=== PATIENT | female | born 1945 | race Caucasian/White ===

== ENCOUNTER 2024-09-26 14:17 | Emergency (ER) | payer MEDICARE, SELFPAY ==
[2024-09-26] VITALS (22 sets, daily range): BP systolic 83–128; BP diastolic 49–82; BMI 19.0
[2024-09-26 14:53] LABS: % Basophils 0.2 % (0-2); % Immature Granulocytes 0.9 % (0-0.5); % Lymphocytes 3.7 % (20.5-51.1); % Monocytes 8.5 % (1.7-9.3); % Neutrophils 86.7 % (42.2-75.2); Absolute Immature Granulocytes 0.1 10^3/uL (0-0.05); Absolute Lymphocytes 0.5 10^3/uL (1.2-3.4); Absolute Monocytes 1.2 10^3/uL (0.1-0.6); Absolute Neutrophils 12.1 10^3/uL (1.4-6.5); Hematocrit 36.7 % (37.0-47.0); Hemoglobin 12.8 g/dL (12.0-16.0); Mean Corp Hgb Conc. 34.9 g/dL (33.0-37.0); Mean Corpuscular Hgb 29.9 pg (27.0-31.0); Mean Corpuscular Volume 85.7 fL (81.0-99.0); Mean Platelet Volume 9.7 fL (7.4-10.4); Nucleated Red Blood Cells % 0 %; Platelet Count 158 10^3/uL (130-400); Red Blood Cell Count 4.28 10^6/uL (4.20-5.40); Red Cell Dist. Width 13.1 % (11.5-14.5)
[2024-09-26 15:11] LABS: ALT (SGPT) 18 U/L (0-35); AST (SGOT) 24 U/L (14-36); Albumin 3.4 g/dl (3.5-5.0); Alkaline Phosphatase 49 U/L (38-126); Blood Urea Nitrogen 31 mg/dl (7-17); Calcium 8.8 mg/dl (8.4-10.2); Carbon Dioxide 22 mmol/L (22-30); Chloride 98 mmol/L (98-107); Estimated Creatinine Clearance 36 ml/min; Glucose 120 mg/dl (70-99); Potassium 3.9 mmol/L (3.5-5.1); Sodium 130 mmol/L (135-145); Total Bilirubin 1.2 mg/dl (0.2-1.3); Total Protein 5.9 g/dl (6.3-8.2); eGFR 51.43
[2024-09-26] MEDS: CARDIZEM 10 MG IV (15:59)
--- NOTE | 2024-09-26 15:59 | ED.GENMED ---
History of Present Illness
General
Chief Complaint: Heart Rate Problem
Source: patient
Exam Limitations: none
Time Seen by Provider: 09/26/24 15:11
Nursing documentation reviewed up to this point in time: agreed with
History of Present Illness
History of Present Illness:
The patient is a pleasant 79-year-old female with a past medical history of dementia who arrives from [facility] for an increased heart rate. Reportedly, according to her family, her increased heart rate was first noticed yesterday.
Patient arrives without any complaints. She denies shortness of breath, palpitations, dizziness and chest pain. She reports that yesterday she noticed left lower back pain but now this is gone completely. She denies nausea, vomiting, or any
urinary symptoms. Patient reports she feels well other than feeling a little anxious. Patient has known history of atrial fibrillation and family reports that she is reliably given Eliquis twice a day. Patient has a history of cardioversion this
past March according to her family.
Past History
Past History
ED Past Medical History: Arrthythmia and Other (dementia)
ED Past Surgical History:
Social History
Tobacco: Other
Alcohol: None
Drug: None
Personal: Other
Living: fpc
Employment: Not employed
Family History
Family History: Other
Review of Systems
Review of Systems
Allergies reviewed?: Yes
Other source history: family
All Other Systems: ROS reviewed and negative except as documented in HPI and ROS
Constitutional: Reports no symptoms
EENT: Reports no symptoms
Respiratory: Reports no symptoms
Cardiac: Reports no symptoms
ABD/GI: Reports no symptoms
: Reports no symptoms
Musculoskeletal: Reports back pain (L back pain now gone)
Skin: Reports no symptoms
Neurological: Reports no symptoms
Endocrine: Reports no symptoms
Hematologic/Lymphatic: Reports no symptoms
Psychiatric: Reports no symptoms
Phy Exam
Physical Exam
Physical Exam:
Physical Exam
General: no apparent distress, not acutely ill
Neck: supple. no meningeal signs. normal psoterior pharynx
Heart: Irregular, abnormal
Lungs: no acute respiratory distress. clear bilaterally
Abdomen: normal bowel sounds. not tender. no CVAT
Neuro: alert and oriented. no focal neurological deficits
Skin: no rash
Psychiatric: well kept. interactive and cooperative
Extremities: no edema. no calf tenderness. negative homans. good distal pulses
Course
Orders/Labs/Results
Orders:
Orders
09/26/24 14:23
Electrocardiogram (*1) Urgent
Reason for Study: Chest Pain
Cardiac Monitoring- Treatment ONCE
EKG- Treatment ONCE
09/26/24 14:45
Complete Blood Count/With Diff Urgent
Comprehensive Metabolic Panel Urgent
09/26/24 15:56
Diltiazem 125 mg/125 ml Nss [Cardizem] 125 mg in 125 ml .ROUTE .STK-MED
Diltiazem HCl [Cardizem] 25 mg .ROUTE .STK-MED ONE
09/26/24 15:57
Diltiazem 125 mg/125 ml Nss [Cardizem] 125 mg in 125 ml IV NOW
Initial dose in mg/hr, then titrate:: 5
Titrate to keep:: Heart rate 80-100 bpm
Titrate by mg/hr:: 5 mg/hr
Frequency of titrations (minutes):: 15
Maximum dose in mg/hr:: 15
Diltiazem HCl [Cardizem] 10 mg IV NOW STA
09/26/24 16:10
0.9% Sodium Chloride 500 ml [Nss] 500 ml IV BOLUS
09/26/24 16:11
CR Chest Portable - 1 View Urgent
Comment:
Reason For Exam: cough
Reason Study Needs to be Portable: Patient Unstable
09/26/24 16:37
Urinalysis Reflex To Culture Urgent
Date Specimen was Collected: 09/26/24
Time Specimen was Collected: 16:35
Urine Microscopic Reflex Cult Urgent
Urine Culture Urgent
MAGDI Source: U
Specimen Description:
Date Specimen was Collected: 09/26/24
Time Specimen was Collected: 16:35
09/26/24 17:31
Propofol [Diprivan] 20 ml .ROUTE .STK-MED
09/26/24 17:45
EKG [Electrocardiogram (*1)] Urgent
Reason for Study: Atrial Fibrillation
EKG- Treatment ONCE
Abnormal Lab Results
09/26/24 09/26/24
14:45 16:37
WBC 14.0 H 10^3/uL
(4.8-10.8)
Hct 36.7 L %
(37.0-47.0)
Abs Immat Gran (auto) 0.1 H 10^3/uL
(0-0.05)
Absolute Neuts (auto) 12.1 H 10^3/uL
(1.4-6.5)
Absolute Lymphs (auto) 0.5 L 10^3/uL
(1.2-3.4)
Absolute Monos (auto) 1.2 H 10^3/uL
(0.1-0.6)
Immature Gran % 0.9 H %
(0-0.5)
Neutrophils % 86.7 H %
(42.2-75.2)
Lymphocytes % 3.7 L %
(20.5-51.1)
Sodium 130 L mmol/L
(135-145)
BUN 31 H mg/dl
(7-17)
Creatinine 1.1 H mg/dL
(0.6-1.0)
Glucose 120 H mg/dl
(70-99)
Total Protein 5.9 L g/dl
(6.3-8.2)
Albumin 3.4 L g/dl
(3.5-5.0)
Urine Ketones Trace A
(Negative)
Ur Occult Blood Reflex 2+ A
(Negative)
Urine RBC 3-6 A /HPF
(0-2)
Urine Bacteria (Reflex) Moderate A
(Negative)
09/26/24 14:45
09/26/24 14:45
Vital Signs
Initial and Last Documented VS:
Initial Vital Signs
BP
115/82
09/26/24 14:22
Last Documented Vital Signs
Temp Pulse Resp BP Pulse Ox
97.7 F 90 18 110/64 97
09/26/24 17:43 09/26/24 18:45 09/26/24 18:45 09/26/24 18:45 09/26/24 18:45
Procedures
Moderate Sedation
ASA Risk Score: Class II
Chart and allergies reviewed: Yes
Consent for anesthesia obtained: Yes
Time out completed (validating right patient & procedure): Yes
Moderate Sedation Start Time(when first medication is given): 05:44
History of difficult intubation: No
Airway free of obstruction: Yes
Patient has a gag reflex: Yes
Patient is able to open mouth: Yes
Patient has no dentures: Yes
Patient has no loose teeth: Yes
Medication administered by Provider during Moderate Sedation: IV Propofol (mg)
Total dose administered: 40
Time drug administered: 17:44
Moderate Sedation Procedure End Time: 17:54
Cardioversion
Indication:: Afib
Performed by:: sandy
Synchronized?: Yes
Energy Used: 150 joules
Number of attempts: 1
Successful?: Yes
Complications: none
MDM/Problems Addressed
Differential Diagnosis Includes:
Atrial fibrillation with RVR, sinus tachycardia, CHF
MDM/Problems Addressed:
Patient presents with acute on chronic rapid heart rate
Chronic conditions affecting care: Arrhythmia
Acute Exacerbation and/or Progression of Chronic Illness:
Patient has acute exacerbation of A-fib with RVR
Acute Exacerbation and/or Progression of Chronic Illness: Arrhythmia
*Radiology
Radiology exam reviewed: preliminary read by ED provider (Chest x-ray by me. Cardiomegaly) and radiology read reviewed
*Pulse Oximetry
Patient hypoxic: no
*EKG
Interpreted by ED Provider?: Yes
Interpretation: abnormal
Comparison EKG: no comparison EKG present
Rate: normal
Rhythm: a-fib
[place]: left axis deviation
Interval: normal interval
QRS Pattern: normal QRS
Ischemia: non-specific ST changes
*Or[employer] Interpretation
Rate: tachycardiac
Interpretation: abnormal
Rhythm: a-fib
*Critical Care Note
Total Time (30-74mins, 75-104mins- exclusive of procedures): Not Applicable (35 minutes critical care given to patient including discussing the procedural sedation, cardioversion, reviewing her EKGs and lab work.)
Data Reviewed
Source: patient and family (Her nephew who is at the bedside)
Update Note
Update Note:
Second EKG shows a normal sinus rhythm at a heart rate of 86. Normal axis. Nonspecific ST abnormality
ED Attending Note
-
Portions of this chart may have been created with voice recognition software.� Occasional wrong word or��sound alike� substitutions may have occurred due to the inherent limitations of voice recognition software.
Discharge Plan
Departure
Patient Disposition: Home (Routine Discharge)
Date of Disposition: 09/26/24
Time of Disposition: 18:21
Patient with high blood pressure during this ER visit?: No
Condition: Good
Covid-19: Not Applicable
Discharge Problem:
Atrial fibrillation with rapid ventricular response
Instructions: Atrial Fibrillation (DC), Cardioversion - Discharge instructions, MODERATE SEDATION ADULT
Prescriptions:
No Action
quetiapine 25 mg Tablet
25 mg PO HS
donepezil 5 mg Tablet
5 mg PO DAILY
metoprolol succinate 50 mg Tablet Extended Release 24 Hr
50 mg PO DAILY
Rx Instructions:
Hold for HR<60
lisinopril 20 mg Tablet
20 mg PO DAILY
spironolactone 25 mg Tablet
25 mg PO DAILY
simvastatin 20 mg Tablet
20 mg PO HS
cholecalciferol (vitamin D3) [Vitamin D3] 25 mcg (1,000 unit) Tablet
1,500 unit PO DAILY
Eliquis 5 mg Tablet
5 mg PO BID
magnesium oxide 400 mg magnesium Tablet
400 mg PO DAILY
Referrals:
Larry Mata MD [Family Provider] -
Activity Restrictions/Additional Instructions:
Please do not give Bernice any blood pressure medication tonight such as lisinopril and metoprolol. Her blood pressure medications can be restarted as usual tomorrow morning. Please follow-up with your sod farmer within 1 week
Interventions
Interventions:
*Risk Screen - Suicide Last Done: 09/26/24 14:35
*General Assessment Last Done: 09/26/24 14:35
*Neglect/Abuse Screening Last Done: 09/26/24 14:35
ED- Fall Risk Assessment Last Done: 09/26/24 14:35
*ED COVID-19 Vaccine History Last Done: 09/26/24 14:35
*Nursing Disposition Last Done: 09/26/24 18:50
ED- Cardiac Assessment Last Done: 09/26/24 14:42
ED- Pulmonary Assessment Last Done: 09/26/24 14:42
Discharge Date and Time
Discharge Date/Time: 09/26/24 18:53
Print Language: KOREAN
[2024-09-26] MEDS: CARDIZEM 125 IV (16:07)
[2024-09-26] MEDS: NSS 500 IV (16:28)
[2024-09-26 16:55] LABS: Urine Albumin Trace (Neg - Trace); Urine Bilirubin Negative (Negative); Urine Character Clear (Clear); Urine Color Yellow; Urine Glucose Negative (Negative); Urine Ketone Trace (Negative); Urine Leukocyte Negative (Negative); Urine Nitrite Negative (Negative); Urine Occult Blood 2+ (Negative); Urine Urobilinogen Negative (Neg - 1+)
[2024-09-26 17:06] LABS: Urine Squamous Cell 0-2 /LPF (Few)
[2024-09-26 17:07] LABS: Urine Mucus Few
[2024-09-26 17:08] LABS: Urine Bacteria Moderate (Negative); Urine White Cell 0-2 /HPF (0-5)
== END 2024-09-26 18:53 | disposition home or self-care (01) ==
LOC: EMR 14:17
PROVIDERS: Student in an Organized Health Care Education/Training Program; EMERGENCY PHYSICIAN Emergency Medicine; FAMILY PHYSICIAN Internal Medicine
DX: I48.91 Unspecified atrial fibrillation (principal); F03.90 Unspecified dementia, unspecified severity, without behavioral disturbance, psychotic disturbance, mood disturbance, and anxiety
CPT/HCPCS: 92960; 99152; 96374; 96361; 99291; 71045; 80053; 81003; 81015; 85025; 87086; 93005

== ENCOUNTER 2024-09-30 16:25 | Inpatient (IN) | payer OTHER, SELFPAY ==
[2024-09-30] VITALS (30 sets, daily range): BP systolic 72–139; BP diastolic 53–95; BMI 18.7
[2024-09-30 13:23] LABS: Hematocrit 40.6 % (37.0-47.0); Hemoglobin 13.6 g/dL (12.0-16.0); Mean Corp Hgb Conc. 33.5 g/dL (33.0-37.0); Mean Corpuscular Hgb 29.7 pg (27.0-31.0); Mean Corpuscular Volume 88.6 fL (81.0-99.0); Platelet Count 369 10^3/uL (130-400); Red Blood Cell Count 4.58 10^6/uL (4.20-5.40); Red Cell Dist. Width 13.6 % (11.5-14.5); White Blood Cell Count 17.6 10^3/uL (4.8-10.8)
--- NOTE | 2024-09-30 13:35 | ED.GENMED ---
History of Present Illness
General
Chief Complaint: Heart Rate Problem
Time Seen by Provider: 09/30/24 13:24
History of Present Illness
History of Present Illness:
Patient is a 79-year-old woman with history of A-fib on Eliquis and metoprolol, hypertension presenting to the emergency department with elevated heart rate. Patient states that she was feeling well this morning when they checked her heart rate was
elevated. Per medics the facility checked and it was in the 180s. They gave her additional metoprolol which did not improve it. Shortly after they gave her p.o. diltiazem. On medics arrival patient was still in A-fib in the 160s. They did give
her fluids. Patient does state that she has had a little cough congestion runny nose however is otherwise feeling well per chart review patient was seen here a few days ago she had a cardioversion. She is on Eliquis has not missed any doses. She
denies any chest pain or difficulty breathing. No nausea vomiting.
Past History
Past History
ED Past Medical History: Arrthythmia and Other (dementia)
ED Past Surgical History:
Social History
Tobacco: Other
Alcohol: None
Drug: None
Personal: Other
Living: alf
Employment: Not employed
Family History
Family History: Other
Phy Exam
Physical Exam
Physical Exam:
GENERAL: in no acute distress
HEENT: normocephalic, extraocular movements intact, dry oral mucosa
NECK: normal inspection
RESPIRATORY: no respiratory distress, clear to auscultation bilaterally
CARDIOVASCULAR: Irregularly irregular,
ABDOMEN/: soft, non-distended, non-tender to palpation, no rebound or guarding
EXTREMITIES: non-tender, no edema/swelling
NEUROLOGIC: awake and alert, moves all extremities
SKIN: warm
Course
Orders/Labs/Results
Orders:
Orders
09/30/24 13:02
Electrocardiogram (*1) Urgent
Reason for Study: Chest Pain
Cardiac Monitoring- Treatment ONCE
EKG- Treatment ONCE
IV Insert/Care/Rem.- Treatment PRN
O2 Therapy [RESP] Urgent
Titrate/Wean O2 to maintain O2 sat greater than (%): 90
Special Instructions: Maintain sats >/=90%
Pulse Ox/spot Check [RESP] Urgent
Quantity: 1
Special Instructions: ON ROOM AIR
09/30/24 13:06
Complete Blood Count/With Diff Urgent
Comprehensive Metabolic Panel Urgent
09/30/24 13:25
CR Chest Portable - 1 View Urgent
Comment:
Reason For Exam: cough
Reason Study Needs to be Portable: Patient Unstable
09/30/24 13:34
0.9% Sodium Chloride 500 ml [Nss] 500 ml IV BOLUS
Calcium Gluconate 1,000 mg IV NOW STA
09/30/24 13:44
COVID-19 Antigen Urgent
Source: Nasal Swab
Influenza A+B Rapid Molecular Urgent
MAGDI Source: Nasal Swab
Specimen Description:
09/30/24 13:47
Add On- LAB Urgent
Tests Added?: magnesium
Abnormal Lab Results
09/30/24
13:06
WBC 17.6 H 10^3/uL
(4.8-10.8)
Abs Immat Gran (auto) 1.5 H 10^3/uL
(0-0.05)
Absolute Neuts (auto) 13.1 H 10^3/uL
(1.4-6.5)
Absolute Monos (auto) 1.1 H 10^3/uL
(0.1-0.6)
Immature Gran % 8.6 H %
(0-0.5)
Lymphocytes % 10.4 L %
(20.5-51.1)
Sodium 134 L mmol/L
(135-145)
Carbon Dioxide 20 L mmol/L
(22-30)
BUN 21 H mg/dl
(7-17)
Calcium 10.3 H mg/dl
(8.4-10.2)
09/30/24 13:06
09/30/24 13:06
Vital Signs
Initial and Last Documented VS:
Initial Vital Signs
Temp
97.5 F
09/30/24 12:59
Last Documented Vital Signs
Temp Pulse Resp BP Pulse Ox
97.5 F 98 18 104/58 97
09/30/24 12:59 09/30/24 14:15 09/30/24 14:15 09/30/24 14:15 09/30/24 14:00
MDM/Problems Addressed
Differential Diagnosis Includes:
Patient is a 79-year-old woman history of A-fib on Eliquis presenting to the emergency department with elevated heart rate. On arrival here patient's heart rate is anywhere in the 160s to the 180s. Her blood pressure is normal. On exam she does
have occasional crackle to the right lower base. Could be pneumonia versus pulmonary edema. Will check checks x-ray. Will check blood work. Will give additional fluids as well as calcium in case diltiazem is started and obtain COVID and flu swab.
*Critical Care Note
Total Time (30-74mins, 75-104mins- exclusive of procedures): Not Applicable
Update Note
Update Note:
On reevaluation patient heart rate has decreased to the 1 teens 100s. Occasionally when I go in the room or she starts talking her heart rate will increase to the 160s but will go back down to the low 100s without any additional intervention. Will
hold off on starting diltiazem drip.
Her blood work does show leukocytosis. She has been having cough with URI symptoms and x-ray per my interpretation with left lower lobe opacity. Will start antibiotics. COVID and flu negative. Discussed with hospitalist who accepted patient to
their service
ED Attending Note
-
Portions of this chart may have been created with voice recognition software.� Occasional wrong word or��sound alike� substitutions may have occurred due to the inherent limitations of voice recognition software.
Discharge Plan
Departure
Patient Disposition: Admit
Date of Disposition: 09/30/24
Time of Disposition: 14:56
Presentation/result/management discussed w/ accepting MD/DO: Hospitalist
Discharge Problem:
Pneumonia, Atrial fibrillation
Prescriptions:
No Action
quetiapine 25 mg Tablet
25 mg PO HS
donepezil 5 mg Tablet
5 mg PO DAILY
metoprolol succinate 50 mg Tablet Extended Release 24 Hr
50 mg PO DAILY
Rx Instructions:
Hold for HR<60
lisinopril 20 mg Tablet
20 mg PO DAILY
spironolactone 25 mg Tablet
25 mg PO DAILY
simvastatin 20 mg Tablet
20 mg PO HS
cholecalciferol (vitamin D3) [Vitamin D3] 25 mcg (1,000 unit) Tablet
1,500 unit PO DAILY
Eliquis 5 mg Tablet
5 mg PO BID
magnesium oxide 400 mg magnesium Tablet
400 mg PO DAILY
Referrals:
Jamin Cárdenas MD [Family Provider] -
Interventions
Interventions:
*Risk Screen - Suicide Last Done: 09/30/24 13:00
*General Assessment Last Done: 09/30/24 13:00
*Neglect/Abuse Screening Last Done: 09/30/24 13:00
ED- Fall Risk Assessment Last Done: 09/30/24 13:03
*ED COVID-19 Vaccine History Last Done: 09/30/24 13:01
ED- Cardiac Assessment Last Done: 09/30/24 13:18
ED- Pulmonary Assessment Last Done: 09/30/24 13:18
Discharge Date and Time
Print Language: FRISIAN
[2024-09-30 13:42] LABS: ALT (SGPT) 17 U/L (0-35); AST (SGOT) 24 U/L (14-36); Albumin 3.6 g/dl (3.5-5.0); Alkaline Phosphatase 60 U/L (38-126); Blood Urea Nitrogen 21 mg/dl (7-17); Calcium 10.3 mg/dl (8.4-10.2); Carbon Dioxide 20 mmol/L (22-30); Chloride 98 mmol/L (98-107); Estimated Creatinine Clearance 39 ml/min; Glucose 93 mg/dl (70-99); Potassium 3.9 mmol/L (3.5-5.1); Sodium 134 mmol/L (135-145); Total Bilirubin 0.9 mg/dl (0.2-1.3); Total Protein 6.4 g/dl (6.3-8.2); eGFR 57.66
[2024-09-30] MEDS: NSS 500 IV ×2 (13:44→23:05)
[2024-09-30] MEDS: CALCIUM GLUCONATE 1000 MG IV (13:44)
[2024-09-30 14:08] LABS: % Basophils 0.4 % (0-2); % Eosinophils 0.5 % (0-6); % Immature Granulocytes 8.6 % (0-0.5); % Lymphocytes 10.4 % (20.5-51.1); % Monocytes 6.1 % (1.7-9.3); Absolute Basophils 0.1 10^3/uL (0-0.2); Absolute Eosinophils 0.1 10^3/uL (0-0.7); Absolute Immature Granulocytes 1.5 10^3/uL (0-0.05); Absolute Lymphocytes 1.8 10^3/uL (1.2-3.4); Absolute Monocytes 1.1 10^3/uL (0.1-0.6); Absolute Neutrophils 13.1 10^3/uL (1.4-6.5); Nucleated Red Blood Cells % 0 %
[2024-09-30 14:34] LABS: COVID-19 Antigen Negative (Negative)
--- NOTE | 2024-09-30 15:05 | HPS.HSE ---
Addendum entered and electronically signed by López Mariscal MD 09/30/24 16:36:
79-year-old female with a past medical history of atrial fibrillation on Eliquis status post cardioversion 09/26/2024, dementia, hypertension, and hyperlipidemia was sent from [facility] for elevated heart rate. Patient denies chest pain, denies
palpitations. In the ER, she was found to have a leukocytosis with chest x-ray findings suggestive of possible pneumonia. She does admit to a cough for the last 4 days.
Patient's heart rate improved with IV fluids and antibiotics in the ER.
Check urine Legionella antigen, strep antigen.
Continue Rocephin, doxycycline.
Patient's current heart rate is 110.
Resume Toprol XL, 25 mg twice a day.
Hold lisinopril, hold spironolactone due to low blood pressure.
Consult cardiology.
I have personally seen and examined the patient, and agree with the plan of care as documented by KAITLYNN Shipley.
Advance care planning discussed, patient is a DNR.
All other issues as outlined by the advanced care practitioner.
Total time spent to see the patient on the floor, examine the patient, review data and lab results, discuss treatment plan with patient, nursing staff around 77 minutes.
Original Note:
Family Physician
-
Family Physician: Jamin Cárdenas MD
Chief Complaint
-
tachycardia
History of Present Illness
Patient is a 79-year-old female with past medical history significant for atrial fibrillation, hypertension and dementia who presented to [facility] ED for evaluation of elevated heart rate. Patient reports when she went to obtain her morning
medication and vital signs at [facility] they informed her that her heart rate was elevated. Report was given that [facility] administered additional metoprolol with no improvement and EMS gave Diltiazem and fluids with improvement of HR. On arrival patient
in a-fib with HR in 160s. Patient had recent ED visit on 09/26/2024 and was cardioverted and discharged back to [facility]. Patient reports intermittent cough and runny nose, otherwise offers no complaints. Deneis any fever, chills, shortness of breath,
chest pain, palpitations, nausea, vomiting, constipation, diarrhea or urinary symptoms.
Medical History
Past Medical History
Past Medical History: Reports Other
Additional Past Medical History:
atrial fibrillation
hypertension
dementia
Past Surgical History: Reports Other
Additional Past Surgical History:
Social History
Unable to obtain full social history at this time due to: Dementia
Tobacco: Non-smoker
Alcohol: Occasional
Drug: None
Personal:
Living: Assisted Living ([facility])
Employment: Retired
Family History
Family History: Not pertinent
Allergies / Home Medications
Allergies reflects when Allergies were last updated in [employer].
Home Medications with original date entered in [employer]
Allergy/Medication List:
Allergies
Allergy/AdvReac Type Severity Reaction Status Date / Time
No Known Allergies Allergy Verified 09/26/24 17:26
Home Medications
apixaban 5 mg tablet (Eliquis) 5 mg PO BID 09/26/24
cholecalciferol (vitamin D3) 25 mcg (1,000 unit) tablet (Vitamin D3) 1,500 unit PO DAILY 09/26/24
donepezil 5 mg tablet 5 mg PO DAILY 09/26/24
lisinopril 20 mg tablet 30 mg PO DAILY 09/26/24
magnesium oxide 400 mg PO DAILY 09/26/24
metoprolol succinate 50 mg tablet,extended release 24 hr 50 mg PO DAILY 09/26/24
quetiapine 25 mg tablet 25 mg PO HS 09/26/24
simvastatin 20 mg tablet 20 mg PO HS 09/26/24
spironolactone 25 mg tablet 25 mg PO DAILY 09/26/24
diltiazem HCl 120 mg capsule,24 hr,extended release 120 mg PO DAILY 09/30/24
Review of Systems
-
Unable to obtain full review of systems at this time due to: Dementia
History Source: Patient
Constitutional: Reports No Symptoms
EENT: Reports Runny Nose
Respiratory: Reports Cough
Cardiac: Reports No Symptoms
Abdomen/GI: Reports No Symptoms
: Reports No Symptoms
Musculoskeletal: Reports No Symptoms
Skin: Reports No Symptoms
Neurological: Reports No Symptoms
Endocrine: Reports No Symptoms
Hematologic/Lymphatic: Reports No Symptoms
Psych: Reports No Symptoms
Physical Exam
Vital Signs
Vital Signs
Temp Pulse Resp BP Pulse Ox
97.5 F 110 23 107/57 98
09/30/24 12:59 09/30/24 15:00 09/30/24 15:00 09/30/24 14:45 09/30/24 15:00
Physical Exam
General: Well Developed, Well Nourished, No Apparent Distress, Comfortable and Conversant
HEENT: NormoCephalic, Moist mucous membranes, Atraumatic, [place] Conjunctivae, Nose Appears Normal and Ears Appear Normal
Respiratory: Clear, Non Labored Respirations and Decreased Breath Sounds; No Wheezes, Rales, Rhonchi or Crackles
Cardiac: S1/S2 and Regular Rhythm; No Murmur, Rub or Gallop
Breast: Deferred by me
GI: Soft, Non Tender, Non Distended and Normal Bowel Sounds; No Organomegaly
Rectal: Deferred by Provider
Genito-urinary: Deferred by me
Musculoskeletal: No Clubbing, No Cyanosis and No Edema
Skin: No Rash
Neuro: Awake, Alert, AO x 3 and Nonfocal/grossly intact
Hematologic/Lymphatic: No Lymphadenopathy
Psych: Calm and Apparent Dementia
Laboratory Results
-
09/30/24 13:06
09/30/24 13:06
Laboratory Results
Total Bilirubin 0.9 mg/dl (0.2-1.3) 09/30/24 13:06
AST 24 U/L (14-36) 09/30/24 13:06
ALT 17 U/L (0-35) 09/30/24 13:06
Alkaline Phosphatase 60 U/L (38-126) 09/30/24 13:06
Data Reviewed
-
Diagnostic Radiology: Report Reviewed by me (CXR: Low lung volumes. Some left upper lobe linear opacity which may represent scarring. Heart at least top normal in size. Pulmonary vascularity at least top normal. Left basilar opacity which could
represent subsegmental atelectasis and/or pneumonia and small left pleural effusion, limited in eval)
Medical Tests (Nuc Med, Echo, EKG etc): Report Reviewed by me (EKG: ATRIAL FLUTTER WITH VARIABLE A-V BLOCK NONSPECIFIC ST AND T WAVE ABNORMALITY ABNORMAL ECG)
Lab Data: Labs Reviewed by me (WBC 17.6)
Impression/Plan
-
IMPRESSION/PLAN:
#pneumonia
CXR: Low lung volumes. Some left upper lobe linear opacity which may represent scarring.
Heart at least top normal in size.
Pulmonary vascularity at least top normal.
Left basilar opacity which could represent subsegmental atelectasis and/or pneumonia and small left pleural effusion, limited in evaluation on AP portable sitting view only.
WBC 17.6
Covid and Influenza negative
- Admit to IMU
- Rocephin and Doxycycline
- Urine legionella and strep pneumoniae in AM
- Procal in AM
#atrial fibrillation
EKG: ATRIAL FLUTTER WITH VARIABLE A-V BLOCK
NONSPECIFIC ST AND T WAVE ABNORMALITY
ABNORMAL ECG
- continue Eliquis, and metoprolol
- Cardizem gtt
#hypertension
- continue lisinopril, metoprolol and spironolactone
#dementia
- continue donepezil, and quetiapine
Code Status: DNR
DVT Prophylaxis: Eliquis
[2024-09-30] MEDS: ROCEPHIN 1000 MG IV (15:12)
[2024-09-30] MEDS: ZITHROMAX INFUSION 250 IV (15:13)
[2024-09-30 15:28] LABS: Magnesium 1.8 mg/dl (1.6-2.3)
[2024-09-30] MEDS: TOPROL XL 25 MG PO (16:31)
--- NOTE | 2024-09-30 16:54 | CON.CAR ---
Addendum entered and electronically signed by Rizwan Adames DO 09/30/24 17:22:
I saw and examined the patient.
The Habitat Conservation Planner's note was reviewed and I agree with the note.
Comment:
Plan:
Recent AFib after recent cv in ER last week.
Continues with Eliquis.
Add amiodarone load 200 mg TID.
Consider cv after amiodarone load inpt vs outpt pending clinical course. Given PNA, may consider outpt.
Check echo
Get old records from [facility]. She may have amyloid picture on her echo
Nephew is POA and wishes to be conservative given her dementia
This is reasonable. She is DNR.
Continue Toprol 25 mg twice daily and diltiazem 120mg daily. OP spironolactone and lisinopril held due to hypotension
Continue management of pneumonia per primary service
Original Note:
Consultation
Consultation Request
Date/Time Consultation Requested: 09/30/2024
Date/Time Consultation Performed: 09/30/2024
Requesting Provider: Dr. Mariscal
Performing Provider: Negin Wu PA-C for Dr. Adames
Reason for Consultation: Afib
Medical History
-
History of Present Illness:
HPI: Bernice is a 79-year-old female with past medical history of dementia, suspected amyloid, hypertension, paroxysmal atrial fibrillation on chronic Eliquis, and hyperlipidemia. She presented to ER for evaluation of elevated heart rate. She
was previously in ER 09/26/2024 with rapid atrial fibrillation and underwent successful cardioversion. She was discharged back to the memory care unit at [place]. She reports this morning when she was given her a.m. meds, they checked her vitals
and her heart rate was elevated. They gave her an additional metoprolol with no improvement and EMS was called. On arrival to ER, heart rate was elevated in the 160s in atrial fibrillation. Chest x-ray concerning for possible pneumonia. She was
admitted and cardiology consulted for evaluation given rapid A-fib. She reports she is asymptomatic and denies any chest pain, palpitations, dizziness, lightheadedness, extremity edema, or shortness of breath. She does not follow with cardiology
as outpatient.
PMH:
Paroxysmal atrial fibrillation
Chronic Eliquis anticoagulation
Suspected amyloid by outside hospital echo
Hypertension
Hyperlipidemia
Dementia
Past Medical History
Past Medical History: Other (In HPI)
Past Surgical History:
Social History
Tobacco: Non-Smoker
Alcohol: Occasional
Drug: None and Former User
Living: Intermediate
Family History
Family History: Reviewed & Not Pertinent
Allergies / Home Medications
Allergy/AdvReac Type Severity Reaction Status Date / Time
No Known Allergies Allergy Verified 09/26/24 17:26
�Medication �Instructions �Recorded �Confirmed �Type
apixaban 5 mg tablet (Eliquis) 5 mg PO BID 09/26/24 09/30/24 History
cholecalciferol (vitamin D3) 25 1,500 unit PO DAILY 09/26/24 09/30/24 History
mcg (1,000 unit) tablet (Vitamin
D3)
donepezil 5 mg tablet 5 mg PO DAILY 09/26/24 09/30/24 History
lisinopril 20 mg tablet 30 mg PO DAILY 09/26/24 09/30/24 History
magnesium oxide 400 mg PO DAILY 09/26/24 09/30/24 History
metoprolol succinate 50 mg 50 mg PO DAILY 09/26/24 09/30/24 History
tablet,extended release 24 hr
quetiapine 25 mg tablet 25 mg PO HS 09/26/24 09/30/24 History
simvastatin 20 mg tablet 20 mg PO HS 09/26/24 09/30/24 History
spironolactone 25 mg tablet 25 mg PO DAILY 09/26/24 09/30/24 History
diltiazem HCl 120 mg capsule,24 120 mg PO DAILY 12/30/24 12/30/24 History
hr,extended release
Review of Systems
-
History Source: Patient
All other systems: Negative unless noted
Physical Exam
Vital Signs
Temp Pulse Resp BP Pulse Ox
97.5 F 122 23 113/69 99
09/30/24 12:59 09/30/24 16:31 09/30/24 16:30 09/30/24 16:31 09/30/24 16:23
Lab Results
09/30/24 13:06
09/30/24 13:06
Physical Exam
General: Well Developed, Well Nourished and No Apparent Distress
HEENT: Normocephalic, Anicteric and Moist Mucous Membranes
Respiratory: Clear and Non Labored Respirations
Cardiac: S1/S2 and Irregular Rhythm
Musculoskeletal: No Clubbing, No Cyanosis and No Edema
Skin: Warm and Dry
Neuro: Awake, Alert and Nonfocal/Grossly Intact
Psych: Calm
Impression / Plan
-
PCP: Dr. Cárdenas
Cardiology: None prior to admission
Impression:
Presented with elevated heart rate
Paroxysmal atrial fibrillation w/ RVR
Suspected pneumonia
Chronic Eliquis anticoagulation
Suspected amyloid by outside hospital echo
Hypertension
Hyperlipidemia
Dementia
Echo 10/01/2024: Study pending
Plan:
-Presented with elevated heart rates found by staff at [place].
-Initial ECG reviewed, rapid atrial fibrillation with heart rate 160 bpm.
-Heart rates improved at time of evaluation, in the 110s. Continue Toprol 25 mg twice daily and diltiazem 120mg daily
-OP spironolactone and lisinopril held due to hypotension
-Hypotension limits uptitration of Toprol. Will add amiodarone 200mg TID
-Continue Eliquis 5 mg twice daily
-Check TSH.
-K3.9. Mag 1.8. Will replete.
-Check echo prior echo at [facility] 01/2024 reportedly with suspected amyloid
-Continue management of pneumonia per primary service
-Continue simvastatin.
HPI: Bernice is a 79-year-old female with past medical history of dementia, suspected amyloid, hypertension, paroxysmal atrial fibrillation on chronic Eliquis, and hyperlipidemia. She presented to ER for evaluation of elevated heart rate. She
was previously in ER 09/26/2024 with rapid atrial fibrillation and underwent successful cardioversion. She was discharged back to the memory care unit at [place]. She reports this morning when she was given her a.m. meds, they checked her vitals
and her heart rate was elevated. They gave her an additional metoprolol with no improvement and EMS was called. On arrival to ER, heart rate was elevated in the 160s in atrial fibrillation. Chest x-ray concerning for possible pneumonia. She was
admitted and cardiology consulted for evaluation given rapid A-fib. She reports she is asymptomatic and denies any chest pain, palpitations, dizziness, lightheadedness, extremity edema, or shortness of breath. She does not follow with cardiology
as outpatient.
Data Reviewed
-
EKG: Tracing Personally Visualized and interpreted
Radiology: Report Reviewed by me
Labs: Labs Reviewed by me
Old Records: Reviewed
[2024-09-30] MEDS: MAGNESIUM OXIDE 500 MG PO (20:43)
[2024-09-30] MEDS: VIBRAMYCIN 100 MG PO (20:43)
[2024-09-30] MEDS: KCL 20 MEQ PO (20:43)
[2024-09-30] MEDS: PACERONE 200 MG PO (20:43)
[2024-09-30] MEDS: ELIQUIS 5 MG PO (20:43)
[2024-09-30] MEDS: LIPITOR 10 MG PO (20:43)
[2024-09-30] MEDS: SEROQUEL 25 MG PO (20:43)
[2024-09-30 21:07] LABS: TSH Reflex To Free T4 1.11 uIU/ml (0.47-4.68)
--- NOTE | 2024-09-30 21:49 | PTCARENOTE ---
Patient arrived into room 3342 with SENIOR ENVIRONMENTAL PRACTICE LEADER. Report received from GRABIEL Easton. Oriented to room and use of call morataya. Patient forgetful. HR increases to 140-160s with any type of exertion. Pt utilized the bedpan and brushed teeth and HR increased to
150-160s. Able to decrease back to 90-100s on its own. Pt having difficulty with swallowing large pills; cut pills and put in applesauce. Purewick placed, pt having a hard time understanding how to use. Afib on tele. Denies any pain. Bed alarm set
for safety. Call morataya within reach. Pt reminded how to use.
--- NOTE | 2024-09-30 23:10 | PTCARENOTE ---
Bed alarm sounding. Patient's heart rate alarming >180 on tele. Upon entering room pt attempting to sit up in bed, stating 'I need my pocket bag, I have an appointment tomorrow'. Re-oriented patient to place and situation. Pt states 'I feel
captive'. Education provided on diagnosis and plan of care. Pt needs reinforcement. KAITLYNN Jaquez made aware of patient's heart rate and appearing anxious and confused. Order for 500cc bolus over 4 hours received. Pt updated on plan of care and
reminded how to use the call morataya when needing anything. Bed alarm set. Call morataya and tray table left within reach.
[2024-10-01] VITALS (17 sets, daily range): BP systolic 83–130; BP diastolic 44–94; BMI 18.6
--- NOTE | 2024-10-01 04:56 | PTCARENOTE ---
Patient had soft BP readings this morning while sleeping, MAP mid 60s. KAITLYNN Jaquez aware.
[2024-10-01 06:32] LABS: Blood Urea Nitrogen 13 mg/dl (7-17); Calcium 9.6 mg/dl (8.4-10.2); Carbon Dioxide 21 mmol/L (22-30); Chloride 106 mmol/L (98-107); Estimated Creatinine Clearance 55 ml/min; Glucose 82 mg/dl (70-99); Potassium 4.1 mmol/L (3.5-5.1); Sodium 136 mmol/L (135-145); eGFR > 60.00
[2024-10-01 06:50] LABS: Hematocrit 31.1 % (37.0-47.0); Hemoglobin 10.8 g/dL (12.0-16.0); Mean Corp Hgb Conc. 34.7 g/dL (33.0-37.0); Mean Corpuscular Hgb 29.8 pg (27.0-31.0); Mean Corpuscular Volume 85.9 fL (81.0-99.0); Mean Platelet Volume 9.2 fL (7.4-10.4); Platelet Count 230 10^3/uL (130-400); Red Blood Cell Count 3.62 10^6/uL (4.20-5.40); Red Cell Dist. Width 13.2 % (11.5-14.5); White Blood Cell Count 8.1 10^3/uL (4.8-10.8)
[2024-10-01 06:58] LABS: Procalcitonin 0.24 ng/ml (0.0-0.25)
--- NOTE | 2024-10-01 08:22 | W.PN.CARDCBS ---
Today's Communication / Plan
-
Recent AFib after recent cv in ER last week.
Continues with Eliquis.
Amiodarone load 200 mg TID started Sep 30. Will increase amiodarone to 400 mg TID
Consider cv after amiodarone load inpt vs outpt pending clinical course.
Echo pending.
Need to obtain old records from [facility]. She may have amyloid picture on her echo per nephew.
Nephew is POA and wishes to be conservative given her dementia
Continue Toprol 25 mg twice daily and diltiazem 120mg daily.
Her spironolactone and lisinopril are on hold due to hypotension
Continue management of pneumonia per primary service
Cont statin
Impression / Plan
-
.
PCP: Dr. Cárdenas
Cardiology: None prior to admission
Impression:
Presented with elevated heart rate
Paroxysmal atrial fibrillation w/ RVR
Suspected pneumonia
Hx PAFib on chronic Eliquis anticoagulation
Suspected amyloid by outside hospital echo
Hypertension
Hyperlipidemia
Significant Dementia, lives at [place]
DNR
Echo 10/01/2024: Study pending
Plan:
Recent AFib after recent cv in ER last week.
Continues with Eliquis.
Amiodarone load 200 mg TID started Sep 30. Will increase amiodarone to 400 mg TID
Consider cv after amiodarone load inpt vs outpt pending clinical course.
Echo pending.
Need to obtain old records from [facility]. She may have amyloid picture on her echo per nephew.
Nephjarad is POA and wishes to be conservative given her dementia
Continue Toprol 25 mg twice daily and diltiazem 120mg daily.
Her spironolactone and lisinopril are on hold due to hypotension
Continue management of pneumonia per primary service
Cont statin
Discussed with nursing.
Discussed with nephew last 24 hrs.
HPI: Bernice is a 79-year-old female with past medical history of dementia, suspected amyloid, hypertension, paroxysmal atrial fibrillation on chronic Eliquis, and hyperlipidemia. She presented to ER for evaluation of elevated heart rate. She
was previously in ER 09/26/2024 with rapid atrial fibrillation and underwent successful cardioversion. She was discharged back to the memory care unit at [place]. She reports this morning when she was given her a.m. meds, they checked her vitals
and her heart rate was elevated. They gave her an additional metoprolol with no improvement and EMS was called. On arrival to ER, heart rate was elevated in the 160s in atrial fibrillation. Chest x-ray concerning for possible pneumonia. She was
admitted and cardiology consulted for evaluation given rapid A-fib. She reports she is asymptomatic and denies any chest pain, palpitations, dizziness, lightheadedness, extremity edema, or shortness of breath. She does not follow with cardiology
as outpatient.
Progress Note - Weigh And Charge Worker
Subjective
Date of Service: October 01, 2024
Pt seen and examined. No complaints. No chest pain or shortness of breath.
Objective
Labs:
10/01/24 05:42
10/01/24 05:42
Labs
Hgb 10.8 g/dL (12.0-16.0) L D 10/01/24 05:42
Hct 31.1 % (37.0-47.0) L 10/01/24 05:42
Plt Count 230 10^3/uL (130-400) D 10/01/24 05:42
Sodium 136 mmol/L (135-145) 10/01/24 05:42
Potassium 4.1 mmol/L (3.5-5.1) 10/01/24 05:42
BUN 13 mg/dl (7-17) 10/01/24 05:42
Creatinine 0.7 mg/dL (0.6-1.0) 10/01/24 05:42
Glucose 82 mg/dl (70-99) 10/01/24 05:42
Vital Signs and I&O:
Vital Signs
Temp Pulse Resp BP Pulse Ox
97.7 F 103 20 104/64 98
10/01/24 05:47 10/01/24 06:00 10/01/24 06:00 10/01/24 06:00 10/01/24 06:00
Vital Signs
Temp Pulse Resp BP Pulse Ox
97.7 F 103 20 104/64 98
10/01/24 05:47 10/01/24 06:00 10/01/24 06:00 10/01/24 06:00 10/01/24 06:00
Intake & Output
09/29/24 09/30/24 10/01/24 10/02/24
06:59 06:59 06:59 06:59
Intake Total 500 / 500
Balance 500 / 500
Physical Exam
Physical Exam
General: No acute distress, AAOX3
Neck: Negative JVD
Heart: Irregularly irregular, Negative S3 positive S1/S2, Negative S4, No murmur
Lungs: CTA b/l, negative wheezes/rales/rhonchi
Abd: Positive BS, NT/ND, neg rebound/rigidity/guarding
Ext: Negative cyanosis/clubbing/edema
Neuro: nonfocal
[2024-10-01] MEDS: PACERONE 200 MG PO ×2 (08:38→09:24)
[2024-10-01] MEDS: ARICEPT 5 MG PO (08:38)
[2024-10-01] MEDS: TOPROL XL 25 MG PO ×2 (08:38→20:54)
[2024-10-01] MEDS: VITAMIN D3 (cholecalciferol) 37.5 MCG PO (08:38)
[2024-10-01] MEDS: CARDIZEM CD 120 MG PO (08:43)
[2024-10-01] MEDS: ELIQUIS 5 MG PO ×2 (08:43→20:54)
[2024-10-01] MEDS: MAG-TAB SR 84 MG PO (08:43)
[2024-10-01] MEDS: VIBRAMYCIN 100 MG PO ×2 (08:43→20:54)
--- NOTE | 2024-10-01 09:19 | W.PN.HOSP.TC ---
Today's Communication/Plan
-
see bold
Assessment / Plan
Assessment / Plan
HPI: 79-year-old female with a past medical history of atrial fibrillation on Eliquis status post cardioversion 09/26/2024, dementia, hypertension, and hyperlipidemia was sent from [place] for elevated heart rate. Patient denies chest pain, denies
palpitations. In the ER, she was found to have a leukocytosis with chest x-ray findings suggestive of possible pneumonia. She does admit to a cough for the last 4 days.
#Atrial fibrillation with rapid ventricular response
Status post cardioversion 09/26/2024
Appreciate cardiology input, started on amiodarone 400 mg 3 times daily
Continue Cardizem 120 mg daily, Toprol XL 25 mg twice daily
Continue Eliquis
#Community-acquired pneumonia
COVID/flu negative, negative for strep and Legionella antigen
Continue Rocephin and doxycycline day 2
Trend fever and white count
#History of essential hypertension
Hold lisinopril, spironolactone due to soft blood pressure
#Mild dementia, unclear type
Continue Aricept, Seroquel
#Hyperlipidemia
Continue statin
DVT prophylaxis�Eliquis
DNR confirmed on admission
Total time spent to see the patient on the floor, examine the patient, review data and lab results, discuss treatment plan with patient, nursing staff around 45 minutes.
Physical Exam
General: No acute distress
HEENT: Normocephalic, Atraumatic, EOMI, MMM
Respiratory: Clear to Auscultation bilaterally
Cardiac: Normal S1/S2, tachycardic rate, irregular rhythm
GI: Soft, Nontender, Nondistended, Normal Bowel Sounds
Extremities: No Clubbing, Cyanosis, or Edema
Neuro: Nonfocal/Grossly Intact
Psych: Calm, Cooperative
Derm: No Visible lesions
Anticipated Discharge: 24 - 48 hours
Subjective/Interval History
-
Date of Service: October 01, 2024
Denies chest pain, shortness of breath, or palpitations. No fever, no vomiting.
Objective Data
-
Labs:
Laboratory Results
10/01/24
05:42
WBC 8.1
Hgb 10.8 L D
Hct 31.1 L
Plt Count 230 D
Sodium 136
Potassium 4.1
Chloride 106
Carbon Dioxide 21 L
BUN 13
Creatinine 0.7
Glucose 82
Calcium 9.6
Vital Signs:
Vital Signs
Temp Pulse Resp BP Pulse Ox
97.7 F 94 19 105/55 97
10/01/24 05:47 10/01/24 08:00 10/01/24 08:00 10/01/24 08:00 10/01/24 08:00
I&O
09/30/24 10/01/24 10/02/24
06:59 06:59 06:59
Intake Total 500 / 500
Balance 500 / 500
--- NOTE | 2024-10-01 09:37 | CM ---
CM following re: discharge planning.
Reviewed pt's chart, met with pt.
Pt is a 79 year old female, admitted with primary dx of PNA, A-alberta.
Pt reports she has been living in an independent apartment at [facility] for the past 6 months, has a son who is not involve in pt's live and pt stated he was not a good son and she does not know where he is has 2 supportive brothers, they live
locally and help as needed. Pt described herself as independent in all areas [employer]. NO DME, VN or SNF history. Pt stated her brother will transport her at discharge.
PCP: Jamin Church
Pharmacy: [facility]
D/C plan: return back to her living arrangement at [facility] with anticipated no needs. Brother to transport at discharge.
CM will follow with discharge plan updates as hospitalization progresses
[2024-10-01 12:08] LABS: NT-proBNP 5200 pg/ml
[2024-10-01] MEDS: STERILE WATER FOR INJECTION 10 ML IV (15:02)
[2024-10-01] MEDS: ROCEPHIN 1000 MG IV (15:02)
[2024-10-01] MEDS: PACERONE 400 MG PO ×2 (16:06→22:46)
--- NOTE | 2024-10-01 16:26 | PTCARENOTE ---
OOB to bsc to void otherwise kept in bed. Tele shows AF rest rates 90s-100s but any activity shoots up 150s-180s. Rates much improved through this afternoon very brief episodes noted. She does admit to her anxiety playing a part. Emotional
support provided. Forgetful, easily redirects- bed alarm engaged- set off once for bathroom. Continent of b/b. Had some loose stool earlier today.
[2024-10-01] MEDS: LIPITOR 10 MG PO (22:46)
[2024-10-01] MEDS: SEROQUEL 25 MG PO (22:46)
[2024-10-02] VITALS (14 sets, daily range): BP systolic 99–139; BP diastolic 61–94
--- NOTE | 2024-10-02 01:00 | PTCARENOTE ---
Pt received from previous RN. Pt alert to self, very confused as to placed, thinking she is home at the [facility] she lives at. pt reoriented gently, provided reassurance as to safety. pt prompted to use bsc and able to void when toileted. pt HR increased
with activity such as ambulating, and when Pt increasingly anxious. HR 80-100 when sleeping and resting. Assessment as documented. bed alarm on, pt attempts to exit bed via self.
[2024-10-02 05:57] LABS: Hematocrit 34.2 % (37.0-47.0); Hemoglobin 11.6 g/dL (12.0-16.0); Mean Corp Hgb Conc. 33.9 g/dL (33.0-37.0); Mean Corpuscular Hgb 29.1 pg (27.0-31.0); Mean Corpuscular Volume 85.9 fL (81.0-99.0); Platelet Count 266 10^3/uL (130-400); Red Blood Cell Count 3.98 10^6/uL (4.20-5.40); Red Cell Dist. Width 13.5 % (11.5-14.5); White Blood Cell Count 7.5 10^3/uL (4.8-10.8)
[2024-10-02 06:13] LABS: Blood Urea Nitrogen 11 mg/dl (7-17); Carbon Dioxide 22 mmol/L (22-30); Chloride 105 mmol/L (98-107); Estimated Creatinine Clearance 55 ml/min; Glucose 106 mg/dl (70-99); Magnesium 1.6 mg/dl (1.6-2.3); Phosphorus 2.9 mg/dl (2.5-4.5); Potassium 3.8 mmol/L (3.5-5.1); Sodium 136 mmol/L (135-145); eGFR > 60.00
[2024-10-02 06:14] LABS: Absolute Neutrophils -Man Diff 5.4 10^3/uL (1.4-6.5); Band Neutrophils 3 % (0-3); Eosinophils 1 % (0-6); Lymphocytes 18 % (20-51); Monocytes 7 % (2-9); Segmented Neutrophils 69 % (42-75)
[2024-10-02 06:15] LABS: Acanthocytes FEW; Anisocytosis 1+; Hypochromasia 2+; Metamyelocytes 2 % (-); Normal RBC Morphology No; Ovalocytes 1+; Platelets Checked Yes; Polychromasia 1+; Total Cells Counted 100
--- NOTE | 2024-10-02 08:15 | W.PN.HOSP.TC ---
Today's Communication/Plan
-
see bold
Assessment / Plan
Assessment / Plan
HPI: 79-year-old female with a past medical history of atrial fibrillation on Eliquis status post cardioversion 09/26/2024, dementia, hypertension, and hyperlipidemia was sent from [place] for elevated heart rate. Patient denies chest pain, denies
palpitations. In the ER, she was found to have a leukocytosis with chest x-ray findings suggestive of possible pneumonia. She does admit to a cough for the last 4 days.
#Atrial fibrillation with rapid ventricular response
Status post cardioversion 09/26/2024
Appreciate cardiology input, started on amiodarone 400 mg 3 times daily
Continue Cardizem 120 mg daily, Toprol XL 25 mg twice daily
Continue Eliquis
For possible cardioversion tomorrow
#Community-acquired pneumonia
COVID/flu negative, negative for strep and Legionella antigen
Continue Rocephin and doxycycline day 3
Trend fever and white count
#History of essential hypertension
Hold lisinopril, spironolactone due to soft blood pressure
#Mild dementia, unclear type
Continue Aricept, Seroquel
From [facility]
#Hyperlipidemia
Continue statin
DVT prophylaxis�Eliquis
DNR confirmed on admission
Total time spent to see the patient on the floor, examine the patient, review data and lab results, discuss treatment plan with patient, nursing staff around 40 minutes.
Physical Exam
General: No acute distress
HEENT: Normocephalic, Atraumatic, EOMI, MMM
Respiratory: Clear to Auscultation bilaterally
Cardiac: Normal S1/S2, tachycardic rate, irregular rhythm
GI: Soft, Nontender, Nondistended, Normal Bowel Sounds
Extremities: No Clubbing, Cyanosis, or Edema
Neuro: Oriented to person and place, not time
Psych: Calm, Cooperative
Anticipated Discharge: 24 - 48 hours
Subjective/Interval History
-
Date of Service: October 02, 2024
Patient denies chest pain, denies shortness of breath. No fever, no vomiting. No palpitations.
Objective Data
-
Labs:
Laboratory Results
10/02/24
05:38
WBC 7.5
Hgb 11.6 L
Hct 34.2 L
Plt Count 266
Sodium 136
Potassium 3.8
Chloride 105
Carbon Dioxide 22
BUN 11
Creatinine 0.7
Glucose 106 H
Calcium 10.0
Vital Signs:
Vital Signs
Temp Pulse Resp BP Pulse Ox
98.0 F 119 20 110/70 96
10/02/24 04:37 10/02/24 06:00 10/02/24 06:00 10/02/24 06:00 10/02/24 06:03
I&O
10/01/24 10/02/24 10/03/24
06:59 06:59 06:59
Intake Total 500 / 500 760 / 760
Balance 500 / 500 760 / 760
--- NOTE | 2024-10-02 08:20 | W.PN.CARDCBS ---
Today's Communication / Plan
-
Continues with Eliquis.
Cont Amiodarone load 400 mg TID
Will consider cv after amiodarone load possibly Oct 03. Will make NPO after midnight.
Need to obtain old records from [facility]. She may have amyloid picture on her echo per nephew.
Nephew is POA and wishes to be conservative given her dementia
Continue Toprol 25 mg twice daily and diltiazem 120mg daily.
Her spironolactone and lisinopril are on hold due to hypotension
Impression / Plan
-
.
PCP: Dr. Cárdenas
Cardiology: None prior to admission
Impression:
Presented with elevated heart rate
Paroxysmal atrial fibrillation w/ RVR
Suspected pneumonia
Hx PAFib on chronic Eliquis anticoagulation
Suspected amyloid by outside hospital echo
Hypertension
Hyperlipidemia
Significant Dementia, lives at [place]
DNR
Echo 10/01/2024: EF 60 to 65% no regional wall motion abnormalities, mild MR, severe biatrial enlargement, moderate to severe tricuspid regurgitation., Pulmonary artery pressure 45 mmHg
Plan:
Recent AFib after recent cv in ER last week.
Continues with Eliquis.
Cont Amiodarone load 400 mg TID
Will consider cv after amiodarone load possibly Oct 03. Will make NPO after midnight.
Echo with preserved EF.
Need to obtain old records from [facility]. She may have amyloid picture on her echo per nephew.
Nephew is POA and wishes to be conservative given her dementia
Continue Toprol 25 mg twice daily and diltiazem 120mg daily.
Her spironolactone and lisinopril are on hold due to hypotension
Continue management of pneumonia per primary service
Cont statin
Discussed with nursing.
HPI: Bernice is a 79-year-old female with past medical history of dementia, suspected amyloid, hypertension, paroxysmal atrial fibrillation on chronic Eliquis, and hyperlipidemia. She presented to ER for evaluation of elevated heart rate. She
was previously in ER 09/26/2024 with rapid atrial fibrillation and underwent successful cardioversion. She was discharged back to the memory care unit at [place]. She reports this morning when she was given her a.m. meds, they checked her vitals
and her heart rate was elevated. They gave her an additional metoprolol with no improvement and EMS was called. On arrival to ER, heart rate was elevated in the 160s in atrial fibrillation. Chest x-ray concerning for possible pneumonia. She was
admitted and cardiology consulted for evaluation given rapid A-fib. She reports she is asymptomatic and denies any chest pain, palpitations, dizziness, lightheadedness, extremity edema, or shortness of breath. She does not follow with cardiology
as outpatient.
Progress Note - Vendor Specialist
Subjective
Date of Service: October 02, 2024
Pt seen and examined. No complaints. No chest pain or shortness of breath.
Objective
Labs:
10/02/24 05:38
10/02/24 05:38
Labs
Hgb 11.6 g/dL (12.0-16.0) L 10/02/24 05:38
Hct 34.2 % (37.0-47.0) L 10/02/24 05:38
Plt Count 266 10^3/uL (130-400) 10/02/24 05:38
Sodium 136 mmol/L (135-145) 10/02/24 05:38
Potassium 3.8 mmol/L (3.5-5.1) 10/02/24 05:38
BUN 11 mg/dl (7-17) 10/02/24 05:38
Creatinine 0.7 mg/dL (0.6-1.0) 10/02/24 05:38
Glucose 106 mg/dl (70-99) H 10/02/24 05:38
Vital Signs and I&O:
Vital Signs
Temp Pulse Resp BP Pulse Ox
98.0 F 119 20 110/70 96
10/02/24 04:37 10/02/24 06:00 10/02/24 06:00 10/02/24 06:00 10/02/24 06:03
Vital Signs
Temp Pulse Resp BP Pulse Ox
98.0 F 119 20 110/70 96
10/02/24 04:37 10/02/24 06:00 10/02/24 06:00 10/02/24 06:00 10/02/24 06:03
Intake & Output
09/30/24 10/01/24 10/02/24 10/03/24
06:59 06:59 06:59 06:59
Intake Total 500 / 500 760 / 760
Balance 500 / 500 760 / 760
Physical Exam
Physical Exam
General: No acute distress, Awake and alert
Neck: Negative JVD
Heart: Irregularly irregular, Negative S3 positive S1/S2, Negative S4, No murmur
Lungs: CTA b/l, negative wheezes/rales/rhonchi
Abd: Positive BS, NT/ND, neg rebound/rigidity/guarding
Ext: Negative cyanosis/clubbing/edema
Neuro: nonfocal
[2024-10-02] MEDS: VITAMIN D3 (cholecalciferol) 37.5 MCG PO (08:45)
[2024-10-02] MEDS: VIBRAMYCIN 100 MG PO ×2 (08:46→19:51)
[2024-10-02] MEDS: CARDIZEM CD 120 MG PO (08:46)
[2024-10-02] MEDS: ARICEPT 5 MG PO (08:46)
[2024-10-02] MEDS: MAG-TAB SR PO ×2 (08:46→08:52)
[2024-10-02] MEDS: PACERONE 400 MG PO ×3 (08:46→21:57)
[2024-10-02] MEDS: ELIQUIS 5 MG PO ×2 (08:46→19:51)
[2024-10-02] MEDS: TOPROL XL 25 MG PO ×2 (08:47→19:51)
[2024-10-02] MEDS: ROCEPHIN 1000 MG IV (13:47)
[2024-10-02] MEDS: STERILE WATER FOR INJECTION 10 ML IV (13:47)
--- NOTE | 2024-10-02 20:20 | PTCARENOTE ---
Pt received from previous RN. pt alert to self, anxious at times, reassurance provided as needed. HR remains 110-130's with activity and increased anxiety/ fidgeting. HR 80-90's when lying, resting, sleeping. afib on monitor. Pt tolerating and able
to swallow pills with more ease when provided in apple sauce. HS oral care provided. Assessment as documented. Call light in reach.
[2024-10-02] MEDS: LIPITOR 10 MG PO (21:57)
[2024-10-02] MEDS: SEROQUEL 25 MG PO (21:58)
[2024-10-03] VITALS (8 sets, daily range): BP systolic 101–140; BP diastolic 55–84
[2024-10-03] MEDS: ARICEPT 5 MG PO (07:57)
[2024-10-03] MEDS: ELIQUIS 5 MG PO (07:57)
[2024-10-03] MEDS: VIBRAMYCIN 100 MG PO (07:57)
[2024-10-03] MEDS: PACERONE 400 MG PO (07:57)
[2024-10-03] MEDS: MAG-TAB SR PO (07:59)
[2024-10-03] MEDS: CARDIZEM CD 120 MG PO (07:59)
[2024-10-03] MEDS: TOPROL XL 25 MG PO (07:59)
--- NOTE | 2024-10-03 08:04 | W.PN.CARDCBS ---
Today's Communication / Plan
-
Continues with Eliquis.
Transition to Amiodarone 200 mg BID for 2 weeks and then 200 mg daily.
s/p successful cardioversion today.
Echo with preserved EF.
Consent from Benedicto brother who is one of the POA and consented to cardioversion. Family has wished to be conservative given her dementia
Continue Toprol 25 mg twice daily and diltiazem 120mg daily.
Her spironolactone and lisinopril are on hold due to hypotension. As her bps have been controlled would keep them off as outpt.
Continue management of pneumonia per primary service
Will arrange outpt cardiac follow up.
Please recall if needed.
Impression / Plan
-
.
PCP: Dr. Cárdenas
Cardiology: None prior to admission
Impression:
Presented with elevated heart rate
Paroxysmal atrial fibrillation w/ RVR
Suspected pneumonia
Hx PAFib on chronic Eliquis anticoagulation
Suspected amyloid by outside hospital echo
Hypertension
Hyperlipidemia
Significant Dementia, lives at [facility]
DNR
Echo 10/01/2024: EF 60 to 65% no regional wall motion abnormalities, mild MR, severe biatrial enlargement, moderate to severe tricuspid regurgitation., Pulmonary artery pressure 45 mmHg
Plan:
Recent AFib after recent cv in ER last week.
Continues with Eliquis.
Transition to Amiodarone 200 mg BID for 2 weeks and then 200 mg daily.
s/p successful cardioversion today.
Echo with preserved EF.
Request old records from [facility]. She may have amyloid picture on her echo per nephew.
Consent from Benedicto brother who is one of the POA and consented to cardioversion. Family has wished to be conservative given her dementia
Continue Toprol 25 mg twice daily and diltiazem 120mg daily.
Her spironolactone and lisinopril are on hold due to hypotension. As her bps have been controlled would keep them off as outpt.
Continue management of pneumonia per primary service
Cont statin
Discussed with nursing.
Will arrange outpt cardiac follow up.
Please recall if needed.
HPI: Bernice is a 79-year-old female with past medical history of dementia, suspected amyloid, hypertension, paroxysmal atrial fibrillation on chronic Eliquis, and hyperlipidemia. She presented to ER for evaluation of elevated heart rate. She
was previously in ER 09/26/2024 with rapid atrial fibrillation and underwent successful cardioversion. She was discharged back to the memory care unit at [facility]. She reports this morning when she was given her a.m. meds, they checked her vitals
and her heart rate was elevated. They gave her an additional metoprolol with no improvement and EMS was called. On arrival to ER, heart rate was elevated in the 160s in atrial fibrillation. Chest x-ray concerning for possible pneumonia. She was
admitted and cardiology consulted for evaluation given rapid A-fib. She reports she is asymptomatic and denies any chest pain, palpitations, dizziness, lightheadedness, extremity edema, or shortness of breath. She does not follow with cardiology
as outpatient.
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
Subjective
Date of Service: October 03, 2024
Pt seen and examined. No complaints. No chest pain or shortness of breath.
Objective
Labs:
10/02/24 05:38
10/02/24 05:38
Labs
Hgb 11.6 g/dL (12.0-16.0) L 10/02/24 05:38
Hct 34.2 % (37.0-47.0) L 10/02/24 05:38
Plt Count 266 10^3/uL (130-400) 10/02/24 05:38
Sodium 136 mmol/L (135-145) 10/02/24 05:38
Potassium 3.8 mmol/L (3.5-5.1) 10/02/24 05:38
BUN 11 mg/dl (7-17) 10/02/24 05:38
Creatinine 0.7 mg/dL (0.6-1.0) 10/02/24 05:38
Glucose 106 mg/dl (70-99) H 10/02/24 05:38
Vital Signs and I&O:
Vital Signs
Temp Pulse Resp BP Pulse Ox
97.6 F 114 14 126/84 98
10/03/24 06:08 10/03/24 08:00 10/03/24 08:00 10/03/24 07:59 10/03/24 08:01
Vital Signs
Temp Pulse Resp BP Pulse Ox
97.6 F 114 14 126/84 98
10/03/24 06:08 10/03/24 08:00 10/03/24 08:00 10/03/24 07:59 10/03/24 08:01
Intake & Output
10/01/24 10/02/24 10/03/24 10/04/24
06:59 06:59 06:59 06:59
Intake Total 500 / 500 760 / 760 540 / 540
Output Total 200 / 200
Balance 500 / 500 760 / 760 340 / 340
Physical Exam
Physical Exam
General: No acute distress, awake and alert
Neck: Negative JVD
Heart: Regular, Negative S3 positive S1/S2, Negative S4, No murmur
Lungs: CTA b/l, negative wheezes/rales/rhonchi
Abd: Positive BS, NT/ND, neg rebound/rigidity/guarding
Ext: Negative cyanosis/clubbing/edema
Neuro: nonfocal
--- NOTE | 2024-10-03 08:38 | W.PN.HOSP.TC ---
Today's Communication/Plan
-
Cleared by cardiology for discharge today
Assessment / Plan
Assessment / Plan
HPI: 79-year-old female with a past medical history of atrial fibrillation on Eliquis status post cardioversion 09/26/2024, dementia, hypertension, and hyperlipidemia was sent from [place] for elevated heart rate. Patient denies chest pain, denies
palpitations. In the ER, she was found to have a leukocytosis with chest x-ray findings suggestive of possible pneumonia. She does admit to a cough for the last 4 days.
#Atrial fibrillation with rapid ventricular response
Status post cardioversion 09/26/2024
Appreciate cardiology input, started on amiodarone 400 mg 3 times daily
Continue Cardizem 120 mg daily, Toprol XL 25 mg twice daily
Continue Eliquis
Status post cardioversion 10/03, currently in normal sinus rhythm
Cleared by cardiology for discharge on amiodarone 200 mg twice a day for 2 weeks, then 200 mg daily
Follow-up with cardiology in the office
#Community-acquired pneumonia
#Sepsis due to the above, POA
COVID/flu negative, negative for strep and Legionella antigen
Currently getting Rocephin and doxycycline day 4
Will discharge on cefdinir and doxycycline to complete a 5-day course
Trend fever and white count
#History of essential hypertension
Blood pressure remains soft
Discontinue lisinopril
May resume spironolactone upon discharge
#Mild dementia, unclear type
Continue Aricept, Seroquel
From [facility]
#Hyperlipidemia
Continue statin
DVT prophylaxis�Eliquis
DNR confirmed on admission
Updated nephew on phone 10/03
Physical Exam
General: No acute distress
HEENT: Normocephalic, Atraumatic, EOMI, MMM
Respiratory: Clear to Auscultation bilaterally
Cardiac: Normal S1/S2, RRR
GI: Soft, Nontender, Nondistended, Normal Bowel Sounds
Extremities: No Clubbing, Cyanosis, or Edema
Neuro: Oriented to person and place, not time
Psych: Calm, Cooperative
Anticipated Discharge: Today
Subjective/Interval History
-
Date of Service: October 03, 2024
Patient had her cardioversion. She denies chest pain, shortness of breath, or palpitations. She does have a cough. No fever, no vomiting.
Objective Data
-
Vital Signs:
Vital Signs
Temp Pulse Resp BP Pulse Ox
97.7 F 114 14 126/84 98
10/03/24 07:21 10/03/24 08:00 10/03/24 08:00 10/03/24 07:59 10/03/24 08:01
I&O
10/02/24 10/03/24 10/04/24
06:59 06:59 06:59
Intake Total 760 / 760 540 / 540
Output Total 200 / 200
Balance 760 / 760 340 / 340
--- NOTE | 2024-10-03 10:03 | PN.CDI ---
CDI
- -
CDI:
Physician Documentation Request
Admit Date: 09/30/24 16:25
Dear Doctor Do,
Patient admitted for pneumonia.
Laboratory Tests
09/30/24
13:06
WBC 17.6 H
09/30/24
13:01 09/30/24
13:45 09/30/24
14:45
Pulse 162 145 110
09/30/24
13:27 09/30/24
14:30 09/30/24
15:15
Resp Rate 38 25 26
Please clarify which of the following most accurately describes the status of the patient's infection:
Sepsis, POA
- Systemic manifestations of infection, with 2 or more SIRS criteria which include:
- Fever >100.4 degrees F or hypothermia < 96.8 degrees F
- Leukocytosis - WBC > 12,000 or leukopenia - WBC < 4,000 or > 10% bands
- Tachycardia > 90 beats per minute
- Tachypnea - RR > 20 breaths per minute or PaCO2 , 32mmHg
Source: Merck Manual 2012
Localized Infection Only, Without Systemic Illness
- indicate the site/source, such as UTI, pneumonia etc.
Other
Use of terms such as suspected, likely, concern for, or probable (associated with a specific diagnosis that is being evaluated, monitored, or treated as if it exists) are acceptable and can be coded in the inpatient setting, when documented at the
time of discharge.
Thank you,
Fanny Suero RN, BSN
CDI Specialist
Available via [place] text
Please use your independent medical judgment in providing your response.
--- NOTE | 2024-10-03 10:54 | ITS.CL.CARDI ---
[employer] - Cardioversion
Cardioversion
Procedure Report:
Date of Procedure: Oct 03 2024
Procedure: Cardioversion
Indication: Symptomatic atrial fibrillation
Performing Physician: Rizwan Adames DO, FACC
Technique: The patient was brought to the holding area. Signed informed consent was obtained. A time out was called and performed. The patient was anesthetized by the anesthesia service. Anticoagulation status was reviewed and appropriate. R2 pads
were placed anteriorly and posteriorly. A 200 J synchronized biphasic shock restored normal sinus rhythm without significant bradycardia. There were no complications.
Conclusion: Uncomplicated cardioversion from atrial fibrillation to sinus rhythm.
Recommendation: Routine post cardioversion care. 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
--- NOTE | 2024-10-03 11:11 | PTCARENOTE ---
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 Pt is in SR on the monitor. Pt has no complaints. Vital signs stable. Pt ready for lunch.
--- NOTE | 2024-10-03 11:48 | W.DCSUMMARY ---
Discharge Summary
Discharge Data
Date of Admission: 09/30/24
Date of Discharge: 10/03/24
-
Pending Results: No
Hospital Course
Discharge diagnosis:
Paroxysmal atrial fibrillation with rapid ventricular response
Sepsis secondary to pneumonia
Essential hypertension
Mild dementia, unclear type
Hyperlipidemia
Consults: Cardiology
Procedures:
10/03/2024 cardioversion
Hospital course:
79-year-old female with a past medical history of atrial fibrillation on Eliquis status post cardioversion 09/26/2024, dementia, hypertension, and hyperlipidemia was admitted for sepsis secondary to community-acquired pneumonia and rapid atrial
fibrillation.
Patient was treated with IV antibiotics for her community-acquired pneumonia. She was seen in conjunction with cardiology for her rapid atrial fibrillation. She was continued on diltiazem and metoprolol succinate. Cardiology started her on
amiodarone. She underwent successful cardioversion on 10/03/2024, and was maintained in normal sinus rhythm. Cardiology recommends she be discharged on amiodarone 200 mg twice a day for 2 weeks, then 200 mg daily.
Patient's blood pressure in the hospital was soft. Her lisinopril and spironolactone were held. Her blood pressure improved on the day of discharge, she can resume her spironolactone. Would recommend she permanently discontinue her lisinopril for
now.
For her community-acquired pneumonia, she received 4 days of IV Rocephin and doxycycline. She did not not have any shortness of breath. She did have a mild cough. She is medically stable for discharge on cefdinir and doxycycline to complete a
5-day course. She needs to follow-up with her primary care doctor in 1 week, and cardiology in the office in 2-3 weeks.
Disposition: Home with home care, at [facility]
Discharge planning: Required 45 minutes
Discharge Plan
-
Patient Disposition: Home with Home Care
Discharge Diagnosis/Procedures: Atrial fibrillation with rapid ventricular response, possible pneumonia
Condition: Good
Diet: Low Cholesterol
Activity: As tolerated
Other Services: VN
Activity Restrictions/Additional Instructions:
Your blood pressure in the hospital was on the low side.
Recommend stopping lisinopril.
Cardiology recommends taking amiodarone twice a day for 2 weeks, then once a day.
Follow-up with your primary care doctor in 1 week, and cardiology in the office in 2-3 weeks.
Referrals:
Rizwan Adames DO [Active] - in two to three weeks
Jamin Cárdenas MD [Family Provider] - in one week
Prescriptions:
New
doxycycline hyclate 100 mg Capsule
100 mg PO BID 1 Days Qty: 2 0RF
cefdinir 300 mg capsule
300 mg PO BID 1 Days Qty: 2 0RF
amiodarone 200 mg Tablet
See Rx Instructions .ROUTE .COMPLEX Qty: 60 0RF
Rx Instructions:
1 tab BID x 2 weeks, then 1 tab daily
Continued
quetiapine 25 mg Tablet
25 mg PO HS
donepezil 5 mg Tablet
5 mg PO DAILY
metoprolol succinate 50 mg Tablet Extended Release 24 Hr
50 mg PO DAILY
Rx Instructions:
Hold for HR<60
spironolactone 25 mg Tablet
25 mg PO DAILY
simvastatin 20 mg Tablet
20 mg PO HS
cholecalciferol (vitamin D3) [Vitamin D3] 25 mcg (1,000 unit) Tablet
1,500 unit PO DAILY
Eliquis 5 mg Tablet
5 mg PO BID
magnesium oxide 400 mg magnesium Tablet
400 mg PO DAILY
diltiazem HCl 120 mg Capsule,Extended Release 24hr
120 mg PO DAILY
Discontinued
lisinopril 20 mg Tablet
30 mg PO DAILY
Discharge Orders:
Discharge Patient (As Directed); Ordered 10/03/24
Ordered By: López Mariscal
Discharge Date and Time
Discharge Date/Time: 10/03/24 15:42
Print Language: URDU
--- NOTE | 2024-10-03 12:56 | CM ---
Patient from [facility] who is s/p cardioversion today. Room air. Receiving IV Abx. PT Eval; recommends home PT v no needs.
Spoke with Andres Nurse at [facility]; they are able to accept the patient back today. They will set up in-house PT with [facility] and will need a script for PT. The for nurse report to [facility] [phone], fax [phone].
Message to Dr Mariscal requesting script for PT.
Met with patient and spoke with nephew Kleber; Kleber spoke with the doctor today, and patient/nephew both agree with d/c back to [facility] today. IMM completed. Kleber will take the script for PT and give it to the [facility] nurse. He will be here
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
Plan d/c back to [facility] today with script for PT.
[2024-10-03] MEDS: STERILE WATER FOR INJECTION 10 ML IV (13:29)
[2024-10-03] MEDS: VITAMIN D3 (cholecalciferol) 37.5 MCG PO (13:29)
[2024-10-03] MEDS: ROCEPHIN 1000 MG IV (13:29)
== END 2024-10-03 15:42 | disposition home health service (06) | DRG 871 ==
LOC: IMU 16:25
PROVIDERS: Emergency Medicine; Nurse Practitioner Family; ADMITTING PHYSICIAN Family Medicine; CONSULT PHYSICIAN Nuclear Medicine Nuclear Cardiology; EMERGENCY PHYSICIAN Student in an Organized Health Care Education/Training Program; FAMILY PHYSICIAN Family Medicine
PROC: 5A2204Z Restoration of Cardiac Rhythm, Single (ICD-10-PCS; 2024-10-03)
DX: A41.89 Other specified sepsis (principal); J18.9 Pneumonia, unspecified organism; I48.0 Paroxysmal atrial fibrillation; Z79.01 Long term (current) use of anticoagulants; Z66 Do not resuscitate; E78.5 Hyperlipidemia, unspecified; F03.A0 Unspecified dementia, mild, without behavioral disturbance, psychotic disturbance, mood disturbance, and anxiety; I10 Essential (primary) hypertension
CPT/HCPCS: 71045; 80048; 80053; 83735; 83880; 84100; 84145; 84443; 85025; 85027; 87070; 87449; 87502; 87811; 87899; 92960; 93005; 93306; 96361; 96365; 96375; 97162; 99285